=== PATIENT | female | born 1980 | race Caucasian/White ===

== ENCOUNTER 2020-01-28 20:13 | Emergency (ER) | payer MEDICAID ==
[~2020-01-28] VITALS: Ht 152.4 cm; Wt 70.5 kg
[2020-01-28 20:14] VITALS: BP 136/90
[2020-01-28] MEDS ORDERED: CefTRIAXone 250MG IM Kit w/LIDOcaine IM ONE (20:40)
[2020-01-28] MEDS ORDERED: azithromycin 250mg tablet PO ONE (20:40)
[2020-01-28 20:55] LABS: CLARITY,URINE SLIGHTLY CLOUDY (Clear); COLOR,URINE YELLOW (Yellow); GLUCOSE, URINE NEGATIVE (Neg); KETONES,URINE NEGATIVE (Neg); LEUKOCYTE ESTERASE ,URINE NEGATIVE (Neg); NITRITES, URINE NEGATIVE (Neg); OCCULT BLOOD,URINE NEGATIVE (Neg); PH,URINE 6.5 (4.8-8.0); PROTEIN,URINE NEGATIVE (Neg); UROBILINOGEN,URINE 0.2 E.U/dL (0.2-1.0)
[2020-01-28 21:01] LABS: UA COLLECTION TYPE CLN CATCH MIDSTREAM
[2020-01-28 21:03] LABS: BACTERIA,URINE NONE SEEN /HPF (Neg); RBC,URINE NONE SEEN /HPF (0-2); SQUAMOUS EPITHELIAL CELL,UR MODERATE /LPF (FEW); WBC,URINE NONE SEEN /HPF (0-4)
== END 2020-01-28 21:55 | disposition home or self-care (01) ==
LOC: ER 20:13
DX: N89.8 Other specified noninflammatory disorders of vagina (principal); R10.9 Unspecified abdominal pain
CPT/HCPCS: 36415; 81001; 87210; 87491; 87591; 96372; 99284; J0696; Q0112; 99283